=== PATIENT | female | born 1970 | race African-American/Black ===

== ENCOUNTER 2016-05-28 10:40 | Emergency (ER) | payer BC, OTHER ==
[~2016-05-28] VITALS: Ht 160 cm; Wt 121.0 kg
[~2016-05-28 10:40] MED LIST: FIORIC PO; GLUCTAB PO; LISI-363 PO
[2016-05-28 10:42] VITALS: BP 144/104; PULSE 107; RESP 18; TEMP 99; O2SAT 100
[2016-05-28] MEDS ORDERED: RESP: ALBUTEROL 2.5 MG/IPRATROPIUM 0.5 MG NEB (SCH) INH ONE (11:15)
--- NOTE | 2016-05-28 11:16 | PD ---
HPI Chief Complaint: Cold / Flu Symptoms Time Seen by Provider: 11:13 Travel History International Travel<30 days: No Contact w/Intl Traveler<30days: No Traveled to known affect area: No History of Present Illness HPI Patient comes in complaining of cough, congestion, generalized body aches, and intermittent wheezing that began yesterday and coughing to the point she feels short of breath. Patient states she took [id number] cold and flu medication for symptomatic relief that seemed to help. Patient states she got concerned when she went to work today and finally one of her coworkers diagnosed with the flu yesterday and she is afraid that she has caught the flu. Patient denies any nausea, vomiting, diarrhea, abdominal pain, chest pain, headache, neck pain, change in vision, loss change in bowel or bladder, fevers, back pain, or . Cough is dry and nonproductive. PFSH Past Medical History Cancer: No Cardiovascular Problems: No Diabetes: Yes Patient Takes Glucophage: No Diminished Hearing: No Glaucoma: No Hepatitis: No Hiatal Hernia: No Hypertension: Yes Respiratory: No Thyroid Disease: No Influenza Vaccination: No ?: Not : 5 Para: 3 Miscarriage: 0 : 2 Past Surgical History Abdominal Surgery: Yes (UNKNOWN ABD SURGERY) Cardiac Surgery: No Ear Surgery: No Endocrine Surgery: No Eye Surgery: No Genitourinary Surgery: No Gynecologic Surgery: No Hysterectomy: Yes (partial) Neurologic Surgery: No Oral Surgery: No Pacemaker: No Thoracic Surgery: No Other Surgery: Yes Social History Alcohol Use: No Tobacco Use: No Substance Use: No Allergies-Medications (Allergen,Severity, Reaction): Coded Allergies: Cipro (Verified Allergy, Severe, Shortness of Breath, 05/28/16) Reported Meds & Prescriptions Reported Meds & Active Scripts Active Ventolin Hfa 18 GM Inh (Albuterol Sulfate) 90 Mcg/Act Aer 2 Puff INH Q4H PRN Tamiflu (Oseltamivir Phosphate) 75 Mg Cap 75 Mg PO BID 5 Days Review of Systems Except as stated in HPI: all other systems reviewed are Neg Physical Exam Narrative GENERAL: Well-developed, overly nourished, in no acute distress, and non-ill appearing. SKIN: Warm and dry. HEAD: Atraumatic. Normocephalic. EYES: Pupils equal and round. EOMI. No scleral icterus. No injection or drainage. ENT: No nasal bleeding or discharge. Mucous membranes pink and moist. NECK: Trachea midline. Supple. No nuclear rigidity. CARDIOVASCULAR: Regular rate and rhythm. No murmur appreciated. RESPIRATORY: No accessory muscle use. No respiratory distress. Clear to auscultation. Breath sounds equal bilaterally. MUSCULOSKELETAL: No obvious deformities. No clubbing. No cyanosis. No edema. Full range of motion. NEUROLOGICAL: Awake and alert. No obvious cranial nerve deficits. Motor grossly within normal limits. Normal speech. PSYCHIATRIC: Appropriate mood and affect; insight and judgment normal. Data Data Last Documented VS Vital Signs Date Time Temp Pulse Resp B/P Pulse Ox O2 Delivery O2 Flow Rate FiO2 05/28/16 12:35 99.4 100 18 180/87 99 Room Air Orders Chest, Single Ap (05/28/16 ) Albuterol-Ipratropium Neb (Duoneb Neb) (05/28/16 11:15) [facility] Medical Decision Making Medical Screen Exam Complete: Yes Emergency Medical Condition: Yes Differential Diagnosis Influenza, pneumonia, bronchitis, upper respiratory infection, viral syndrome, other Narrative Course Patient looks great. Patients symptom complex is consistent with Influenza, or flu-like illness. The patient is tolerating fluids and is well hydrated. There is no evidence to suggest secondary infection (pneumonia, sepsis/bacteremia, etc.) at this time. I discussed with the patient, diagnosis, and plan of care and to follow up with the patients primary physician. I discussed with the patient regarding testing, even if rapid influenza negative, I would suspect false negative. I discussed with the patient initiating Tamiflu and the patient agreed with plan. The patient was instructed to return if the worsens in anyway , especially if not tolerating fluids, increased pain or swelling, difficulty swallowing or breathing, or as needed. The patient agreed with plan. Chest xray was performed and negative for consolidation, pneumonia. The patient denies prior history of hypertension. Patient states that she saw her doctor once but was not started any antihypertensives. Patient reports that she monitors her blood pressure outside of her doctors office and that never runs high. The patient has no symptoms as well. The patient denied headache, changes in vision, nausea, vomiting, dizziness, weakness or loss of sensation. The patient denied and chest, back or abdominal pain. The patient also denied any shortness of breath, dyspnea on exertion, orthopnea or PND. The patient denies any edema to extremities. The patients blood pressures at discharge were at an acceptable level. I discussed with the patient that the standard of care is to not initiate antihypertensive medications at this time and for them to follow up with a primary care physician for continued outpatient evaluation and potential initiation of blood pressure medications. Return warnings were given to the patient and the patient agreed with plan of care. Patient in no obvious distress upon re-evaluation. All pertinent Radiology result(s) discussed with patient. Patient was asked if they wanted to speak to my attending, which the patient did not wish to do at this time. Any questions/ concerns in reference to patient diagnosis/condition discussed and clarified prior to patient's discharge. Reinforced sheer importance of close follow up with patient's primary physician or primary care clinic. Instructed patient to return to ED immediately, if symptoms return/worsen. Pt showed understanding of above instructions. Further instructions and recommendations were detailed in discharge paperwork. Pt ambulated without difficulty out of ED at discharge. Diagnosis Primary Impression: Influenza A with respiratory manifestations Patient Instructions: General Instructions, Influenza (DC) Additional Instructions: Follow-up with your primary care physician in 3-5 days for reevaluation and for reevaluation of your blood pressure. Take all medication as prescribed. Return to the emergency department if symptoms get worse. Med/Other Pt SpecificInfo: Prescription(s) given Scripts Albuterol 18 GM Inh (Ventolin Hfa 18 GM Inh)90 Mcg/Act Aer2 Puff INH Q4H PRN ( COUGH) #1 INHALER Ref 0 Prov:Osmani Zimmer MD 05/28/16 Oseltamivir (Tamiflu)75 Mg Cap75 Mg PO BID 5 Days Ref 0 Prov:Osmani Zimmer MD 05/28/16 Disposition: 01 DISCHARGE HOME Condition: Stable [place] May 28, 2016 11:15
--- NOTE | 2016-05-28 11:44 | RADHPO ---
EXAM DATE/TIME: 05/28/2016 11:14 [facility] COMPARISON: CHEST SINGLE AP, June 30, 2013, 11:38. INDICATIONS : Cough and flu like symptoms MEDICAL HISTORY : None. SURGICAL HISTORY : None. ENCOUNTER: Initial ACUITY: 2 days PAIN SCORE: 8/10 LOCATION: Bilateral chest FINDINGS: A single view of the chest demonstrates the lungs to be symmetrically aerated without evidence of mas s, infiltrate or effusion. The cardiomediastinal contours are unremarkable. Osseous structures are intact. CONCLUSION: No acute disease. Marvin Patiño MD on May 28, 2016 at 11:38 Board Certified Radiologist. This report was verified electronically.
[2016-05-28] MEDS ORDERED: OSEL75 PO (12:20)
[2016-05-28] MEDS ORDERED: VENTAER INH (12:20)
[2016-05-28 12:35] VITALS: BP 180/87; PULSE 100; RESP 18; TEMP 99.4; O2SAT 99
== END 2016-05-28 12:36 | disposition home or self-care (01) ==
LOC: PHEFT 10:40
DX: J09.X2 Influenza due to identified novel influenza A virus with other respiratory manifestations (principal)
CPT/HCPCS: 71010; 94664; 99284

== ENCOUNTER 2018-02-18 07:43 | Observation (INO) ==
[2018-02-18] MEDS ORDERED: Sod Chloride 0.9% Inj 1,000 ML IV.SIG ONE (09:47)
--- NOTE | 2018-02-18 09:57 | ED ---
HPI General Chief complaint: Dizziness Stated complaint: dizzy x yesterday Time Seen by Provider: 02/18/18 09:31 History of Present Illness HPI narrative: 47-year-old female with a history of pre-hypertension and prediabetes presents to the emergency permit for evaluation of dizziness and unsteady gait. Patient states that she started having sensation of dizziness 2 nights ago. States that yesterday she was feeling as though her balance was off. States that she took 2 Dramamine last night which she felt helped her symptoms. States when she got up this morning she was feeling well and decided to go for a walk with her . States while she was walking with her she felt as though her balance was off again and she was veering to the right. She denies any headache. States that she has been crying a lot over the last several days due to personal issues and thought may be this aggravated her sinuses somehow causing the dizziness. States she has had some slightly blurred vision as well however states again she feels this is related to crying a lot recently. She denies any fever, chills, nausea, vomiting, diarrhea, abdominal pain, chest pain, shortness of breath, numbness or tingling, weakness. States she was seen here several months ago for similar complaints however this is different in that she feels off balance now and previously was feeling more dizzy. No other complaints or concerns. PCP Dr. Kay. Related Data Home Medications Medication Instructions Recorded Confirmed herbal drugs 1 tab PO DAILY 02/18/18 02/18/18 Allergies Allergy/AdvReac Type Severity Reaction Status Date / Time ciprofloxacin Allergy Severe Shortness Verified 02/18/18 12:51 of Breath Review of Systems ROS: all other systems reviewed are negative PMFSH Social History Social History Substance History: No History of Abuse Second Hand Smoke Exposure: No Smoking Status: Never smoker How Often Do You Have a Drink Containing Alcohol: Never Recent Travel in [facility] within the Last 8 Weeks: No Recent Out of Country Travel within the Last 8 Weeks: No Immunization History Tetanus Immunization: >5 Years Exam Narrative Exam Narrative: GENERAL: Well-nourished and well-developed pleasant patient in no acute distress who is nontoxic appearing. SKIN: Warm and dry. HEAD: Normocephalic and atraumatic. EYES: No injection, drainage, or hyphema noted. PERRLA. EOMI. ENT: No nasal drainage noted. Oropharynx is clear. Mild effusions noted to bilateral tympanic membranes, no erythema, bulging or loss of landmarks. NECK: Supple and the trachea is midline. CARDIOVASCULAR: Regular rate and rhythm. RESPIRATORY: Breath sounds are equal bilaterally with no accessory muscle use, wheezing, rhonchi, or crackles. GASTROINTESTINAL: Abdomen is soft, non-tender, and nondistended. MUSCULOSKELETAL: No obvious deformities, swelling, cyanosis, or ecchymosis is present throughout the upper and lower extremities. Patient has full range of motion without any signs of neurovascular compromise. Distal pulses are 2+ throughout. Strength 5/5 upper and lower extremities and equal bilaterally. NEUROLOGICAL: Awake, alert, and oriented. Normal speech. Patient with slight movement to the right when asked to walk down the roberts, otherwise gait is steady. Cranial nerves are grossly intact. Normal heel to nicole test. Normal finger to nose test. Course Initial Documented Vital Signs Temperature 97.9 F 02/18/18 07:49 Pulse Rate 67 02/18/18 07:49 Respiratory Rate 18 02/18/18 07:49 Blood Pressure 185/78 H 02/18/18 07:49 Pulse Oximetry 97 02/18/18 07:49 Last Documented Vital Signs Temperature 97.5 F L 02/19/18 00:00 Pulse Rate 69 02/19/18 04:00 Respiratory Rate 20 02/19/18 00:00 Blood Pressure 144/82 H 02/19/18 04:00 Pulse Oximetry 98 02/19/18 00:00 Medical Decision Making BLANCHE Attestation BLANCHE supervised visit: Yes Attestation: I, Dr. Peterson, have reviewed the advance practice practitioner's documentation and am in agreement, met with the patient face to face, made the diagnosis, and the medical decision making was done by me. *My assessment and Findings: Patient is awake and alert and neurologically intact Please see Ana Pina PA-C's note for full details of the H&P and disposition. MDM Narrative Medical decision making narrative: 47-year-old female presents to the emergency department for evaluation of gait imbalance and dizziness. Patient is afebrile , vital signs are stable. On physical examination the patient has no focal neurologic deficits. The only physical abnormalities noted are she has tympanic membrane effusions and she has a slight gait instability but not true ataxia. IV access is obtained, labs have been drawn and sent. Patient is placed on cardiac telemetry and pulse oximetry monitoring. Patient is administered IV fluids and meclizine [address] has been ordered and is pending. EKG shows normal sinus rhythm with no acute ST elevations or depressions. Chest x-ray is negative for any acute abnormalities. CBC is unremarkable. Coags are unremarkable. CMP is unremarkable. Troponin is less than 0.02. Urinalysis is consistent with urinary tract infection. Head CT is negative. Patient reassessed and states that she still feels off balance worse when she ambulates. Discussed with the patient that workup is unremarkable with the exception of urinary tract infection. Discussed option of observation for TIA/ CVA workup. Patient is agreeable with this plan. Discussed case with Dr. Farrell [facility] who accepts patient to his service. Medical Screen Exam Complete: Yes Emergency Medical Condition: Yes Differential Diagnosis Differential Diagnosis: BPPV versus TIA versus electrolyte abnormality versus anemia Lab Data Result diagrams: 02/18/18 10:10 02/18/18 10:10 POC Results POC Urine Results Negative Lab Results 02/18/18 02/18/18 02/18/18 Range/Units 09:10 10:10 10:10 CBC w Diff Auto diff final WBC 8.0 (4.0-11.0) th/mm3 RBC 4.56 (4.00-5.30) mil/mm3 Hgb 12.1 (11.6-15.3) gm/dL Hct 36.7 (35.0-46.0) % MCV 80.5 (80.0-100.0) fL MCH 26.4 L (27.0-34.0) pg MCHC 32.8 (32.0-36.0) % RDW 13.3 (11.6-17.2) % Plt Count 278 (150-450) th/mm3 MPV 8.9 (7.0-11.0) fL Neut % (Auto) 62.7 (16.0-70.0) % Lymph % (Auto) 27.9 (9.0-44.0) % [place] % (Auto) 6.8 (0.0-8.0) % Eos % (Auto) 2.1 (0.0-4.0) % Baso % (Auto) 0.5 (0.0-2.0) % Neut # (Auto) 5.1 (1.8-7.7) th/mm3 Lymph # (Auto) 2.2 (1.0-4.8) th/mm3 [place] # (Auto) 0.5 (0.0-0.9) th/mm3 Eos # (Auto) 0.2 (0.0-0.4) th/mm3 Baso # (Auto) 0.0 (0.0-0.2) th/mm3 WBC Differential . Differential Comment . PT 10.3 (9.8-11.6) sec INR 1.0 Ratio APTT (23.4-31.7) sec Sodium (136-145) meq/L Potassium (3.5-5.1) meq/L Chloride (98-107) meq/L Carbon Dioxide (21.0-32.0) meq/L Anion Gap (5-15) meq/L BUN (7-18) mg/dL Creatinine (0.50-1.00) mg/dL Estimated GFR (>89) mL/min Random Glucose (74-106) mg/dL Calcium (8.5-10.1) mg/dL Total Bilirubin (0.2-1.0) mg/dL AST (15-37) U/L ALT (10-53) U/L Alkaline Phosphatase (45-117) U/L Troponin I (0.02-0.05) ng/mL Total Protein (6.4-8.2) g/dL Albumin (3.4-5.0) g/dL Ur Collection Type Clean catch Urine Color Yellow (Yellw/Straw) Urine Clarity Slightly cloudy (Clear) Urine pH 6.5 (5.0-8.5) Ur Specific [place] 1.015 (1.002-1.035) Urine Protein Negative (Neg-Trace) mg/dL Urine Glucose (UA) Negative (Negative) mg/dL Urine Ketones Negative (Negative) mg/dL Urine Occult Blood Negative (Negative) Urine Nitrate Negative (Negative) Urine Bilirubin Negative (Negative) Urine Urobilinogen 0.2 (Less than 2) mg/dL Ur Leukocyte Esterase Trace H (Negative) Urine RBC 0-3 (0-3) /hpf Urine WBC 9-20 H (0-5) /hpf Urine WBC Clumps Occasional H (None) Ur Squamous Epith Cells Greater than 10 H (0-5) /hpf Ur Transition Epith Cell 1-5 H (None) /hpf Amorphous Sediment Moderate H (None) /hpf Urine Bacteria Moderate H (None) /hpf Micro UA Comment Culture indicated Ur Microscopic Review Microscopic reviewed Urine Culture Comments Culture indicated Urine Collection Time 910 hours 02/18/18 02/18/18 Range/Units 10:10 10:10 CBC w Diff WBC (4.0-11.0) th/mm3 RBC (4.00-5.30) mil/mm3 Hgb (11.6-15.3) gm/dL Hct (35.0-46.0) % MCV (80.0-100.0) fL MCH (27.0-34.0) pg MCHC (32.0-36.0) % RDW (11.6-17.2) % Plt Count (150-450) th/mm3 MPV (7.0-11.0) fL Neut % (Auto) (16.0-70.0) % Lymph % (Auto) (9.0-44.0) % [place] % (Auto) (0.0-8.0) % Eos % (Auto) (0.0-4.0) % Baso % (Auto) (0.0-2.0) % Neut # (Auto) (1.8-7.7) th/mm3 Lymph # (Auto) (1.0-4.8) th/mm3 [place] # (Auto) (0.0-0.9) th/mm3 Eos # (Auto) (0.0-0.4) th/mm3 Baso # (Auto) (0.0-0.2) th/mm3 WBC Differential Differential Comment PT (9.8-11.6) sec INR Ratio APTT 24.3 (23.4-31.7) sec Sodium 142 (136-145) meq/L Potassium 4.2 (3.5-5.1) meq/L Chloride 105 (98-107) meq/L Carbon Dioxide 30.5 (21.0-32.0) meq/L Anion Gap 7 (5-15) meq/L BUN 13 (7-18) mg/dL Creatinine 0.75 (0.50-1.00) mg/dL Estimated GFR Greater than 89 (>89) mL/min Random Glucose 101 (74-106) mg/dL Calcium 8.8 (8.5-10.1) mg/dL Total Bilirubin 0.2 (0.2-1.0) mg/dL AST 20 (15-37) U/L ALT 45 (10-53) U/L Alkaline Phosphatase 66 (45-117) U/L Troponin I Less than 0.02 L (0.02-0.05) ng/mL Total Protein 7.9 (6.4-8.2) g/dL Albumin 3.7 (3.4-5.0) g/dL Ur Collection Type Urine Color (Yellw/Straw) Urine Clarity (Clear) Urine pH (5.0-8.5) Ur Specific [place] (1.002-1.035) Urine Protein (Neg-Trace) mg/dL Urine Glucose (UA) (Negative) mg/dL Urine Ketones (Negative) mg/dL Urine Occult Blood (Negative) Urine Nitrate (Negative) Urine Bilirubin (Negative) Urine Urobilinogen (Less than 2) mg/dL Ur Leukocyte Esterase (Negative) Urine RBC (0-3) /hpf Urine WBC (0-5) /hpf Urine WBC Clumps (None) Ur Squamous Epith Cells (0-5) /hpf Ur Transition Epith Cell (None) /hpf Amorphous Sediment (None) /hpf Urine Bacteria (None) /hpf Micro UA Comment Ur Microscopic Review Urine Culture Comments Urine Collection Time hours Imaging Data Radiologist's impression: Carotid Doppler Study 02/18/18 00:00 CONCLUSION: Limited study. 1. Right Internal Carotid Artery: No significant plaque or narrowing. 2. Left Internal Carotid Artery: No significant plaque or narrowing. Chest X-Ray 02/18/18 09:47 CONCLUSION: Negative examination. Head CT 02/18/18 09:47 CONCLUSION: 1. Negative CT Head non contrast. . Discharge Plan Discharge Disposition Patient Disposition: 30 Still Patient Discharge Details Diagnosis: TIA (transient ischemic attack), Dizziness Physicians Team ED Provider: Kiley Peterson ED Midlevel Provider: Ana Pina Primary Care Provider: Nicholas Kay Attending Provider: Oleg Farrell Status ED Status: Left Department Discharge Information Discharge Date/Time: 02/18/18 14:35
--- NOTE | 2018-02-18 10:24 | XR ---
EXAM DATE: 02/18/2018 10:22 AM EST AGE/SEX: 47 years / Female INDICATIONS: Cardiac disease, dizzy, lightheaded CLINICAL DATA: This is the patient's initial encounter. Patient reports that signs and symptoms have been present for 1 day and indicates a pain score of 0/10. MEDICAL/SURGICAL HISTORY: None. Abdominal aortic aneurysm repair. COMPARISON: [facility], CHEST SINGLE AP, 05/28/2016. . FINDINGS: A single AP view of the chest demonstrates the lungs to be symmetrically aerated without evidence of mass, infiltrate or effusion. The cardiomediastinal contours are unremarkable. Osseous structures a re intact. CONCLUSION: Negative examination. Electronically signed by: Javy Kirkland MD 02/18/2018 10:22 AM EST
[2018-02-18 10:25] LABS: Bilirubin,Urine Negative (Negative); Clarity,Urine Slightly Cloudy (Clear); Color,Urine Yellow (Yellw/Straw); Glucose,Urine (UA) Negative (Negative); Leukocyte Esterase,Urine Trace (Negative); Nitrite,Urine Negative (Negative); PH,Urine 6.5 (5.0-8.5); Specific Gravity,Urine 1.015 (1.002-1.035); Urobilinogen,Urine 0.2 mg/dL (Less than 2)
[2018-02-18 10:29] LABS: RBC,Urine 0-3 /hpf (0-3)
[2018-02-18 10:30] LABS: Amorphous Sediment,Urine Moderate /hpf; Bacteria,Urine Moderate /hpf; Squamous Epithelial Cell,Urine Greater than 10 /hpf (0-5)
[2018-02-18 10:39] LABS: Chloride 105 meq/L (98-107); Potassium 4.2 meq/L (3.5-5.1); Sodium 142 meq/L (136-145)
[2018-02-18 10:41] LABS: Baso % (Auto) 0.5 % (0.0-2.0); Eos # (Auto) 0.2 th/mm3 (0.0-0.4); Eos % (Auto) 2.1 % (0.0-4.0); Hematocrit 36.7 % (35.0-46.0); Hemoglobin 12.1 gm/dL (11.6-15.3); Lymph # (Auto) 2.2 th/mm3 (1.0-4.8); Lymph % (Auto) 27.9 % (9.0-44.0); Mean Corpuscular HGB Conc 32.8 % (32.0-36.0); Mean Corpuscular Hemoglobin 26.4 pg (27.0-34.0); Mean Corpuscular Volume 80.5 fL (80.0-100.0); Mean Platelet Volume 8.9 fL (7.0-11.0); Mono # (Auto) 0.5 th/mm3 (0.0-0.9); Mono % (Auto) 6.8 % (0.0-8.0); Neut # (Auto) 5.1 th/mm3 (1.8-7.7); Neut % (Auto) 62.7 % (16.0-70.0); Platelet Count 278 th/mm3 (150-450); Red Blood Count 4.56 mil/mm3 (4.00-5.30); Red Cell Distribution Width 13.3 % (11.6-17.2)
[2018-02-18 10:42] LABS: Calcium 8.8 mg/dL (8.5-10.1)
[2018-02-18 10:43] LABS: Albumin 3.7 g/dL (3.4-5.0); Anion Gap 7 meq/L (5-15); Blood Urea Nitrogen 13 mg/dL (7-18); Carbon Dioxide 30.5 meq/L (21.0-32.0); Glucose,Random 101 mg/dL (74-106); Prothrombin Time 10.3 sec (9.8-11.6)
[2018-02-18 10:46] LABS: Alanine Aminotransferase 45 U/L (10-53); Aspartate Aminotransferase 20 U/L (15-37); Glomerular Filtration Rate Greater Than 89 mL/min (>89)
[2018-02-18 10:47] LABS: Total Protein 7.9 g/dL (6.4-8.2)
[2018-02-18 10:49] LABS: Alkaline Phosphatase 66 U/L (45-117)
--- NOTE | 2018-02-18 11:26 | CT ---
EXAM DATE: 02/18/2018 11:24 AM EST AGE/SEX: 47 years / Female INDICATIONS: Dizziness 2 days CLINICAL DATA: This is the patient's initial encounter. Patient reports that signs and symptoms have been present for 2 days and indicates a pain score of 3/10. MEDICAL/SURGICAL HISTORY: None. Hysterectomy. RADIATION DOSE: 62.29 CTDI (mGy) COMPARISON: [facility] [place]IN [place]/O [place]AST, 10/27/2010. . TECHNIQUE: CT of the head without contrast. Using automated exposure control and adjustment of the mA and/or kV according to patient size, radiation dose was kept as low as reasonably achievable to ob tain optimal diagnostic quality images. DICOM format image data is available electronically for revi ew and comparison. FINDINGS: Cerebrum: The ventricles are normal for age. No evidence of midline shift, mass lesion, hemorrhage or acute infarction. No extraaxial fluid collections are seen. Posterior Fossa: The cerebellum and brainstem are intact. The 4th ventricle is midline. The cerebe llopontine angle is unremarkable. Extracranial: The visualized portion of the orbits is intact. Skull: The calvaria is intact. No evidence of skull fracture. CONCLUSION: 1. Negative CT Head non contrast. . Electronically signed by: Javy Kirkland MD 02/18/2018 11:25 AM EST
--- NOTE | 2018-02-18 11:54 | ECG ---
Date Performed: 02/18/2018 Time Performed: 10:19:57 PTAGE: 47 years EKG: Sinus rhythm NORMAL ECG Compared to prior electrocardiogram, Nonspecific T-wave changes have improved. PREVIOUS TRACING : 06/30/2013 11.07 DOCTOR: Britton Ledesma Interpretating Date/Time 02/18/2018 11:51:59
[2018-02-18] MEDS ORDERED: Bisacodyl 10 MG Supp RECTAL PRN (12:13)
[2018-02-18] MEDS: Sod Chloride 0.9% Inj 1,000 ML IV.CONT SCH ×2 (12:24→21:20)
--- NOTE | 2018-02-18 13:06 | US ---
EXAM DATE: 02/18/2018 12:53 PM EST AGE/SEX: 47 years / Female INDICATIONS: Dizziness. CLINICAL DATA: This is the patient's initial encounter. Patient reports that signs and symptoms have been present for 1 day and indicates a pain score of 3/10. MEDICAL/SURGICAL HISTORY: . Pre-diabetes. Pre-hypertension. Hysterectomy. COMPARISON: No prior exams available for comparison. VELOCITY PARAMETERS: ICA/CCA Ratio: Right 0.6 , Left 0.6 ICA: Right 58 cm/sec, Left 56 cm/sec CCA: Right 100 cm/sec, Left 94 cm/sec ECA: Right 100 cm/sec, Left 38 cm/sec Vertebral: Right 49 cm/sec antegrade, Left 62 cm/sec antegrade FINDINGS: Right Carotid: No significant plaque is visualized.The waveforms are within normal limits. Left Carotid: No significant plaque is visualized. Difficult to visualize the distal left ICA. The w aveforms are within normal limits. Other: None. CONCLUSION: Limited study. 1. Right Internal Carotid Artery: No significant plaque or narrowing. 2. Left Internal Carotid Artery: No significant plaque or narrowing. Electronically signed by: Nicholas Hammond MD 02/18/2018 1:04 PM EST
--- NOTE | 2018-02-18 14:47 | P.HP ---
History of Present Illness Service: Hospitalist Primary Care Physician: Nicholas Kay DO Chief Complaint: Dizziness, gait difficulty History of Present Illness: Ms. Fischer is a 47 year old female with a history of pre- hypertension and pre-diabetes who presented to the ED due to gait difficulty and dizziness that started about 3 days prior to this admission. She went for a walk this morning with her and she felt somewhat off balance and she was veering to the right. Patient denies any chest pain, shortness of breath, cough, fever or chills. Denies any abdominal pain. No dysuria or hematuria. Denies any changes in bowel habits. Past medical history: hypertension and prediabetes. Past surgical history: Partial hysterectomy Social history: Patient denies using tobacco or alcohol. Family history mother had hypertension. Review of Systems All other systems reviewed negative except as stated in [facility] - History History Provided By: Patient - Medical History Medical History: Medical History (Last Reviewed 02/18/18 @ 15:38 by Oleg Farrell DO) Delivery by combination of forceps and vacuum extractor H/O: hysterectomy Pre-diabetes Pre-hypertension - Surgical History Surgical History: Surgical History (Last Reviewed 02/18/18 @ 15:38 by Oleg Farrell DO) No history of previous surgery - Tobacco History Second Hand Smoke Exposure: No Smoking Status: Never smoker - Alcohol History How Often Do You Have a Drink Containing Alcohol: Never - Substance Use History Substance History: No History of Abuse - Travel History Recent Travel in the [place] Within the Last 8 Weeks: No Recent Travel Out of the Country Within the Last 8 Weeks: No - Immunization History Tetanus Immunization: >5 Years Medications and Allergies Active Medications: Active Medications Acetaminophen (Tylenol) 650 mg PO Q4H PRN PRN Reason: Headache, fever, pain 1-4 Al Hydroxide/Mg Hydroxide (Milk Of Magnesia Liq) 30 ml PO Q12H PRN PRN Reason: Mild Constipation Bisacodyl (Dulcolax Supp) 10 mg RECTAL DAILY PRN PRN Reason: SEVERE CONSITIPATION Sodium Chloride (Ns Inj) 1,000 mls @ 100 mls/hr IV.CONT .Q10H [place] Stop: 02/19/18 12:14 Last Admin: 02/18/18 12:24 Dose: 100 mls/hr Lactulose (Lactulose Liq) 30 ml PO DAILY PRN PRN Reason: SEVERE CONSITIPATION Ondansetron HCl (Zofran Inj) 4 mg IV.PUSH Q6H PRN PRN Reason: NAUSEA OR VOMITING Sennosides (Senokot) 17.2 mg PO Q12H PRN PRN Reason: Moderate Constipation Sodium Chloride (Ns Flush) 2 ml IV.FLUSH PRN PRN PRN Reason: FLUSH AFTER USING IV ACCESS Last Admin: 02/18/18 10:19 Dose: 2 ml Allergies Allergy/AdvReac Type Severity Reaction Status Date / Time ciprofloxacin Allergy Severe Shortness Verified 02/18/18 12:51 of Breath Home Medications Medication Instructions Recorded Confirmed Type herbal drugs 1 tab PO DAILY 02/18/18 02/18/18 History Exam Vital signs: Vital Signs 02/18/18 07:49 02/18/18 09:30 02/18/18 09:40 Temperature 97.9 F 97.9 F Pulse Rate 67 67 68 Respiratory Rate 18 18 18 Blood Pressure 185/78 H 185/78 H 144/82 H Pulse Oximetry 97 97 100 02/18/18 13:00 Temperature Pulse Rate 66 Respiratory Rate 18 Blood Pressure 176/81 H Pulse Oximetry 100 Intake & Output 02/17/18 02/18/18 02/18/18 18:59 06:59 18:59 Intake Total 1000 / 1000 Balance 1000 / 1000 Weight 120.9 kg Intake: IV 1000 / 1000 NS Inj 1,000 ML @ Wide Open IV. 1000 / 1000 SIG BOLUS ONE Rx#:[id number] Narrative: GENERAL: This is a well-nourished, well-developed patient, in no apparent distress. Morbidly obese SKIN: No rashes, ecchymoses or lesions. Warm and dry. HEAD: Atraumatic. Normocephalic. No temporal or scalp tenderness. EYES: Pupils equal round and reactive. No injection or drainage. ENT: Nose without bleeding, purulent drainage or septal hematoma. Airway patent. NECK: Trachea midline. No lymphadenopathy. Supple, nontender, no meningeal signs. CARDIOVASCULAR: Regular rate and rhythm without murmurs, gallops, or rubs. No JVD. RESPIRATORY: Clear to auscultation. Breath sounds equal bilaterally. No wheezes , rales, or rhonchi. GASTROINTESTINAL: Abdomen soft, non-tender, nondistended. No guarding. MUSCULOSKELETAL: Extremities without clubbing, cyanosis, or edema. NEUROLOGICAL: Awake and alert. Cranial nerves II through XII intact. No focal neurological deficits. Normal speech. Results - Labs CBC & Chem 7: 02/18/18 10:10 02/18/18 10:10 Labs: Laboratory Results - last 24 hr 02/18/18 02/18/18 02/18/18 09:10 10:10 10:10 CBC w Diff Auto diff final WBC 8.0 RBC 4.56 Hgb 12.1 Hct 36.7 MCV 80.5 MCH 26.4 L MCHC 32.8 RDW 13.3 Plt Count 278 MPV 8.9 Neut % (Auto) 62.7 Lymph % (Auto) 27.9 [place] % (Auto) 6.8 Eos % (Auto) 2.1 Baso % (Auto) 0.5 Neut # (Auto) 5.1 Lymph # (Auto) 2.2 [place] # (Auto) 0.5 Eos # (Auto) 0.2 Baso # (Auto) 0.0 WBC Differential . Differential Comment . PT 10.3 INR 1.0 APTT Sodium Potassium Chloride Carbon Dioxide Anion Gap BUN Creatinine Estimated GFR Random Glucose Calcium Total Bilirubin AST ALT Alkaline Phosphatase Troponin I Total Protein Albumin Ur Collection Type Clean catch Urine Color Yellow Urine Clarity Slightly cloudy Urine pH 6.5 Ur Specific [place] 1.015 Urine Protein Negative Urine Glucose (UA) Negative Urine Ketones Negative Urine Occult Blood Negative Urine Nitrate Negative Urine Bilirubin Negative Urine Urobilinogen 0.2 Ur Leukocyte Esterase Trace H Urine RBC 0-3 Urine WBC 9-20 H Urine WBC Clumps Occasional H Ur Squamous Epith Cells Greater than 10 H Ur Transition Epith Cell 1-5 H Amorphous Sediment Moderate H Urine Bacteria Moderate H Micro UA Comment Culture indicated Ur Microscopic Review Microscopic reviewed Urine Culture Comments Culture indicated Urine Collection Time 910 02/18/18 02/18/18 10:10 10:10 CBC w Diff WBC RBC Hgb Hct MCV MCH MCHC RDW Plt Count MPV Neut % (Auto) Lymph % (Auto) [place] % (Auto) Eos % (Auto) Baso % (Auto) Neut # (Auto) Lymph # (Auto) [place] # (Auto) Eos # (Auto) Baso # (Auto) WBC Differential Differential Comment PT INR APTT 24.3 Sodium 142 Potassium 4.2 Chloride 105 Carbon Dioxide 30.5 Anion Gap 7 BUN 13 Creatinine 0.75 Estimated GFR Greater than 89 Random Glucose 101 Calcium 8.8 Total Bilirubin 0.2 AST 20 ALT 45 Alkaline Phosphatase 66 Troponin I Less than 0.02 L Total Protein 7.9 Albumin 3.7 Ur Collection Type Urine Color Urine Clarity Urine pH Ur Specific [place] Urine Protein Urine Glucose (UA) Urine Ketones Urine Occult Blood Urine Nitrate Urine Bilirubin Urine Urobilinogen Ur Leukocyte Esterase Urine RBC Urine WBC Urine WBC Clumps Ur Squamous Epith Cells Ur Transition Epith Cell Amorphous Sediment Urine Bacteria Micro UA Comment Ur Microscopic Review Urine Culture Comments Urine Collection Time - Imaging Impressions Carotid Doppler Study 02/18/18 00:00 CONCLUSION: Limited study. 1. Right Internal Carotid Artery: No significant plaque or narrowing. 2. Left Internal Carotid Artery: No significant plaque or narrowing. Chest X-Ray 02/18/18 09:47 CONCLUSION: Negative examination. Head CT 02/18/18 09:47 CONCLUSION: 1. Negative CT Head non contrast. . Caprini VTE Risk Assessment Caprini VTE Risk Assessment: No/Low Risk (score <= 1) Caprini Risk Assessment Model: Point Value = 1 Point Value = 2 Point Value = 3 Point Value = 5 Age 41-60 Minor surgery BMI > 25 kg/m2 Swollen legs Varicose veins or History of unexplained or recurrent spontaneous Oral contraceptives or hormone replacement Sepsis (< 1 month) Serious lung disease, including pneumonia (< 1 month) Abnormal pulmonary function Acute myocardial infarction Congestive heart failure (< 1 month) History of inflammatory bowel disease Medical patient at bed rest Age 61-74 Arthroscopic surgery Major open surgery (> 45 min) Laparoscopic surgery (> 45 min) Malignancy Confined to bed (> 72 hours) Immobilizing plaster cast Central venous access Age >= 75 History of VTE Family history of VTE Factor V Leiden Prothrombin [id number] Lupus anticoagulant Anticardiolipin antibodies Elevated serum homocysteine Heparin-induced thrombocytopenia Other congenital or acquired thrombophilia Stroke (< 1 month) Elective arthroplasty Hip, pelvis, or leg fracture Acute spinal cord injury (< 1 month) Prophylaxis Regimen: Total Risk Factor Score Risk Level Prophylaxis Regimen 0-1 Low Early ambulation 2 Moderate Order ONE of the following: *Sequential Compression Device (SCD) *Heparin 5000 units SQ BID 3-4 Higher Order ONE of the following medications: *Heparin 5000 units SQ TID *Enoxaparin/Lovenox 40 mg SQ daily (WT < 150 kg, CrCl > 30 mL/min) *Enoxaparin/Lovenox 30 mg SQ daily (WT < 150 kg, CrCl > 10-29 mL/min) *Enoxaparin/Lovenox 30 mg SQ BID (WT < 150 kg, CrCl > 30 mL/min) AND/OR *Sequential Compression Device (SCD) 5 or more Highest Order ONE of the following medications: *Heparin 5000 units SQ TID (Preferred with Epidurals) *Enoxaparin/Lovenox 40 mg SQ daily (WT < 150 kg, CrCl > 30 mL/min) *Enoxaparin/Lovenox 30 mg SQ daily (WT < 150 kg, CrCl > 10-29 mL/min) *Enoxaparin/Lovenox 30 mg SQ BID (WT < 150 kg, CrCl > 30 mL/min) AND *Sequential Compression Device (SCD) Assessment and Plan - Plan Ms. Fischer is a pleasant 47-year-old -[place] female with a history of hypertension, prediabetes who presented to the emergency department due to 3- day duration of gait instability as well as dizziness. Dizziness Gait instability No other focal neurological deficit. No focal weakness. Carotid ultrasound was unremarkable. MRI brain pending. CT head was unremarkable chest x-ray was unremarkable. Urinalysis shows abnormal results. However patient is asymptomatic. Asymptomatic bacteriuria does not need treatment unless patient is or patient is undergoing urological procedures. If MRI is negative, we may treat patient empirically with amoxicillin for ear infection. Possible otitis media - We will start Augmentin for 10 days. Hypertension Blood pressure is in the 170s. Will start patient on amlodipine 5 mg daily. Can be uptitrated to 10 mg daily Prediabetes Patient's blood glucose was 101. No evidence of diabetes. Full code. SCDs.
[2018-02-18] MEDS: Acetaminophen 325 MG Tablet PO PRN ×2 (15:03→21:19)
[2018-02-18] MEDS ORDERED: amLODIPine 5 MG Tablet PO ONE (16:00)
[2018-02-18] MEDS: Amoxicillin/Clavulanate 875/125 MG Tablet PO SCH (21:19)
[2018-02-19] MEDS: Acetaminophen 325 MG Tablet PO PRN ×2 (05:24→11:59)
[2018-02-19] MEDS: Amoxicillin/Clavulanate 875/125 MG Tablet PO SCH (08:56)
[2018-02-19] MEDS: Sod Chloride 0.9% Inj 1,000 ML IV.CONT SCH (08:57)
[2018-02-19] MEDS ORDERED: amLODIPine 5 MG Tablet PO SCH (09:00)
--- NOTE | 2018-02-19 10:35 | MR ---
EXAM DATE: 02/19/2018 10:28 AM EST AGE/SEX: 47 years / Female INDICATIONS: Vertigo. Headaches. CLINICAL DATA: This is the patient's initial encounter. Patient reports that signs and symptoms have been present for 2 days and indicates a pain score of 0/10. MEDICAL/SURGICAL HISTORY: Hypertension. Vertigo. Hysterectomy. COMPARISON: [facility], CT HEAD W/O CONTRAST, 02/18/2018. . TECHNIQUE: Multiplanar, multisequence examination of the brain was performed without contrast. FINDINGS: Diffusion weighted images demonstrate no evidence for acute infarction. CSF spaces, ventricles and ci sterns are of normal size and configuration. Signal intensity of the brain is normal. No masses are s een. No hemorrhage. CONCLUSION: 1. Negative MR Brain non contrast. Electronically signed by: Javy Kirkland MD 02/19/2018 10:34 AM EST
[2018-02-19 12:33] VITALS: RESP 16
[2018-02-19 15:10] VITALS: BP 142/67; PULSE 86; TEMP 97.7; O2SAT 98
--- NOTE | 2018-02-19 16:38 | P.PN ---
Subjective Interval history: Follow up for dizziness. Patient is resting in bed. She still complains of some dizziness. No fever, chills. She was able to ambulate to the bathroom on her own. PT also evaluated patient and recommended no home health or assist device. Physical Exam Vital signs: Vital Signs 02/18/18 20:30 02/18/18 21:59 02/19/18 00:00 Temperature 98.3 F 97.5 F L Pulse Rate 70 77 Respiratory Rate 20 20 20 Blood Pressure 183/78 H 166/78 H Pulse Oximetry 99 98 02/19/18 04:00 02/19/18 08:00 02/19/18 12:00 Temperature 97.4 F L 97.7 F Pulse Rate 69 65 86 Respiratory Rate 20 20 Blood Pressure 144/82 H 142/77 H 142/67 H Pulse Oximetry 100 98 02/19/18 12:32 Temperature Pulse Rate Respiratory Rate 16 Blood Pressure Pulse Oximetry Intake & Output 02/18/18 02/19/18 02/19/18 18:59 06:59 18:59 Intake Total 1540 / 1540 1480 / 1480 2240 / 2240 Output Total 100 / 100 Balance 1540 / 1540 1480 / 1480 2140 / 2140 Weight 120.9 kg 121 kg Intake: IV 1000 / 1000 1000 / 1000 1999 / 1999 NS Inj 1,000 ML @ 100 mls/hr IV 1000 / 1000 1999 / 1999 .CONT .Q10H LATONIA Rx#:[id number] NS Inj 1,000 ML @ Wide Open IV. 1000 / 1000 SIG BOLUS ONE Rx#:[id number] Oral 540 / 540 480 / 480 240 / 240 Output: Urine 100 / 100 Other: # Voids 2 3 Weight On Admission 120.9 kg Narrative: GENERAL: Alert, NAD. SKIN: Warm and dry. HEAD: Normocephalic. EYES: No scleral icterus. No injection or drainage. NECK: Supple, trachea midline. No JVD or lymphadenopathy. CARDIOVASCULAR: Regular rate and rhythm without murmurs, gallops, or rubs. RESPIRATORY: Breath sounds equal bilaterally. No accessory muscle use. GASTROINTESTINAL: Abdomen soft, non-tender, nondistended. MUSCULOSKELETAL: No cyanosis, or edema. BACK: Nontender without obvious deformity. No CVA tenderness. Results - Labs CBC & Chem 7: 11/10/18 10:10 02/18/18 10:10 Microbiology 02/18/18 09:10 Clean Catch Urine Urine Culture - Final <10,000 cfu/mL mixed goyo - no further workup - Imaging Impressions Head MRI 02/19/18 00:00 CONCLUSION: 1. Negative MR Brain non contrast. Assessment and Plan - Plan Ms. Fischer is a pleasant 47-year-old -[place] female with a history of hypertension, prediabetes who presented to the emergency department due to 3- day duration of gait instability as well as dizziness. Dizziness Gait instability No other focal neurological deficit. No focal weakness. Carotid ultrasound was unremarkable. MRI brain unremarkable for any acute findings. CT head was unremarkable chest x-ray was unremarkable. Urinalysis shows abnormal results. However patient is asymptomatic. Asymptomatic bacteriuria does not need treatment unless patient is or patient is undergoing urological procedures. -continue Meclizine. -If symptoms persists, patient is encouraged to see ENT in the outpatient setting. Possible otitis media - We will continue Augmentin Hypertension Blood pressure is in the 170s. Will continue patient on amlodipine 5 mg daily. Can be uptitrated to 10 mg daily Prediabetes Patient's blood glucose was 101. No evidence of diabetes. Full code. SCDs. Discharge patient to home Condition on discharge: Improved Heart healthy Diet as tolerated Ad Vicki activity Rx written: Meclizine 25 mg every 6 hours (Rx was corrected to say this is scheduled). Amlodipine 5 mg daily Augmentin [id number] every 12 hours #20 Follow-up with primary care physician within 1-2 weeks. ENT if symptoms persist.
== END 2018-02-19 16:45 | disposition home or self-care (01) ==
LOC: PHEDA 07:43 → PHED 07:43 → PHEDA 14:35 → PH3 14:39
PROVIDERS: ADMIT Hospitalist; ATTEND Hospitalist
CPT/HCPCS: 70450; 70551; 71010; 71045; 80053; 81001; 84484; 84703; 85025; 85610; 85730; 87086; 90761; 93005; 93880; 96361; 96374; 97161; 99285; G0378; G8987; G8988; J2405; J7030